=== PATIENT | female | born 1950 | race American Indian/Alaskan Native ===

== ENCOUNTER 2017-04-06 20:31 | Emergency (ER) | payer BC ==
[2017-04-06 21:36] VITALS: BP 122/83
[2017-04-06] MEDS ORDERED: Bacitracin Oint 1 GM U/D Packet TOP ONE (23:05)
--- NOTE | 2017-04-06 23:08 | EDM.PDOC ---
ED HPI GENERAL MEDICAL PROBLEM - General Chief Complaint: Laceration Stated Complaint: FINGER SLICED, [id number] Time Seen by Provider: 04/06/17 23:00 Source of Information: Reports: Patient History Limitations: Reports: No Limitations - History of Present Illness INITIAL COMMENTS - FREE TEXT/NARRATIVE: This 66 yo female patient reports to the ED with a laceration to her left distal middle finger. The patient reports she was cutting a watermelon when the knife slipped, cutting her finger. The patient reports the wound was bleeding for about 1 hour. Onset: Today Duration: Constant Location: Reports: Upper Extremity, Left Quality: Reports: Ache, Dull Severity: Mild Improves with: Reports: None Worsens with: Reports: None Associated Symptoms: Reports: No Other Symptoms Left 4-Ring finger Pain Score (Numeric/FACES): 5 - Related Data Allergies Allergy/AdvReac Type Severity Reaction Status Date / Time ibuprofen Allergy Stomach Verified 04/06/17 21:35 Upset venom-wasp [Wasp Venom] Allergy Swelling Verified 04/06/17 21:35 Home Meds: Home Meds Aspirin [Low Dose Aspirin EC] 81 mg PO DAILY 02/23/14 [History] Fenofibric Acid (Choline) [Trilipix] 45 mg PO DAILY 02/23/14 [History] Insulin Detemir [Levemir] 35 unit SQ QAM 02/23/14 [History] Insulin Detemir [Levemir] 55 unit SUBCUT QPM 02/23/14 [History] Metoprolol Tartrate 25 mg PO DAILY 02/23/14 [History] Simvastatin [Zocor] 20 mg PO BEDTIME 02/23/14 [History] sitaGLIPtin Phos/Metformin HCl [Janumet 50-1,000 mg Tablet] 1 each PO BID [History] Calcium Citrate 325 mg PO DAILY 03/17/15 [History] Cholecalciferol (Vitamin D3) [Vitamin D3] 1,000 unit PO DAILY 03/17/15 [History] glipiZIDE [Glipizide] 5 mg PO WITHDINNER 07/14/15 [History] glipiZIDE [Glipizide] 10 mg PO ACBREAKFAST 07/14/15 [History] Past Medical History Endocrine/Metabolic History: Reports: Diabetes, Type II, Obesity/BMI 30+ - Past Surgical History GI Surgical History: Reports: Appendectomy Social & Family History - Tobacco Use Smoking Status *Q: Current Every Day Smoker Years of Tobacco use: 48 Packs/Tins Daily: 0.3 Second Hand Smoke Exposure: Yes - Alcohol Use Days Per Week of Alcohol Use: 0 - Recreational Drug Use Recreational Drug Use: No ED ROS GENERAL - Review of Systems Review Of Systems: ROS reveals no pertinent complaints other than HPI. ED EXAM, SKIN/RASH Exam: See Below Exam Limited By: No Limitations General Appearance: Alert, WD/WN, No Apparent Distress Eye Exam: Bilateral Eye: EOMI, Normal Inspection, PERRL Ears: Normal External Exam, Normal Canal, Hearing Grossly Normal, Normal TMs Nose: Normal Inspection, Normal Mucosa, No Blood Throat/Mouth: Normal Inspection, Normal Lips, Normal Teeth, Normal Gums, Normal Oropharynx, Normal Voice, No Airway Compromise Head: Atraumatic Neck: Normal Inspection, Supple, Non-Tender, Full Range of Motion Respiratory/Chest: No Respiratory Distress, Lungs Clear, Normal Breath Sounds, No Accessory Muscle Use, Chest Non-Tender Cardiovascular: Normal Peripheral Pulses, Regular Rate, Rhythm, No Edema, No Gallop, No JVD, No Murmur, No Rub GI/Abdominal: Normal Bowel Sounds, Soft, Non-Tender, No Organomegaly, No Distention, No Abnormal Bruit, No Mass (Female) Exam: Deferred Rectal (Female) Exam: Deferred Back Exam: Normal Inspection, Full Range of Motion, NT Extremities: Normal Range of Motion, Non-Tender, No Pedal Edema, Normal Capillary Refill Neurological: Alert, Oriented, CN II-XII Intact, Normal Cognition, Normal Gait, Normal Reflexes, No Motor/Sensory Deficits Psychiatric: Normal Affect, Normal Mood Skin: Warm, Dry, Normal Color, No Rash Location, Skin: Upper Extremity, Right Characteristics: Linear Associated features: Tenderness. No: Warmth Lymphatic: No Adenopathy Course - Vital Signs Last Recorded V/S: Last Vital Signs Temp 37.0 C 04/06/17 21:31 Pulse 100 04/06/17 21:31 Resp 18 04/06/17 21:31 BP 122/83 04/06/17 21:31 Pulse Ox 98 04/06/17 21:31 - Orders/Labs/Meds Meds: Medications Discontinued Medications Generic Name Dose Route Start Last Admin Trade Name Freq PRN Reason Stop Dose Admin Bacitracin 1 dose 04/06/17 23:05 Bacitracin Oint 1 Gm TOP 04/06/17 23:06 ONETIME ONE - Re-Assessments/Exams Free Text/Narrative Re-Assessment/Exam: 04/06/17 23:12 Discussed the possibilities of suturing the patient's wound, but the outcome would not improve her situation. The patient agreed to dress the wound with antibiotic ointment and a bandaid. Departure - Departure Time of Disposition: 23:05 Disposition: Home, Self-Care 01 Condition: fair Clinical Impression: Laceration of left middle finger Qualifiers: Encounter type: initial encounter Damage to nail status: without damage Foreign body presence: without foreign body Qualified Code(s): S61.213A - Laceration without foreign body of left middle finger without damage to nail, initial encounter - Discharge Information Instructions: Laceration Care, Adult, [id number] Referrals: Nancy Briggs [place] [Primary Care Provider] - Forms: ED Department Discharge Care Plan Goals: The patient was advised of the examination results during the visit. The patient was encouraged to keep the area clean and dry over the next 24-48 hours. The patient will check with the [facility] on her Tetanus immunization status and get the injection if necessary tomorrow. If the patient has any additional symptoms or concerns, the patient should follow-up with her primary care facility or return to the emergency department.
== END 2017-04-06 23:16 | disposition home or self-care (01) ==
LOC: DL.ED 20:31
DX: S61.213A Laceration without foreign body of left middle finger without damage to nail, initial encounter (principal); E11.9 Type 2 diabetes mellitus without complications; E66.9 Obesity, unspecified; F17.210 Nicotine dependence, cigarettes, uncomplicated; Z88.6 Allergy status to analgesic agent; Z79.82 Long term (current) use of aspirin; Z79.899 Other long term (current) drug therapy; Z79.4 Long term (current) use of insulin; Z90.49 Acquired absence of other specified parts of digestive tract; W26.0XXA Contact with knife, initial encounter; Y93.89 Activity, other specified
CPT/HCPCS: 99283

== ENCOUNTER 2017-09-08 12:35 | Emergency (ER) | payer MEDICARE, BC, OTHER ==
[2017-09-08] MEDS ORDERED: Sodium Chloride 0.9% 10 ML Syringe FLUSH PRN ×2 (13:12→14:00)
[2017-09-08 13:50] LABS: CHLORIDE,CL 99 mmol/L (101-111); SODIUM,NA 137 mmol/L (135-145)
[2017-09-08] MEDS ORDERED: Magnesium Sulfate/D5W 2 GM in Premix Bag 1 BAG IV ONE (13:58)
[2017-09-08] MEDS ORDERED: Sodium Chloride 0.9% 1,000 ML IV ONE (14:00)
--- NOTE | 2017-09-08 14:05 | CR ---
Clinical history: 67-year-old female chest pain. Interpretation: Reasonable inspiratory effort obese female with normal cardiac silhouette (external c ardiac monitor leads). No cephalization of vascular flow, signs of alveolar edema or dependent effusion. No lung mass, hilar lymphadenopathy or focal lobar pneumonia. No atelectasis/collapse. No pneumothorax. CONCLUSION: No acute cardiopulmonary abnormality.
--- NOTE | 2017-09-08 14:27 | EDM.PDOC ---
ED HPI GENERAL MEDICAL PROBLEM - General Chief Complaint: Neuro Symptoms/Deficits Stated Complaint: BY AMBULANCE Time Seen by Provider: 09/08/17 13:20 Source of Information: Reports: Patient, RN, RN Notes Reviewed History Limitations: Reports: No Limitations - History of Present Illness INITIAL COMMENTS - FREE TEXT/NARRATIVE: Pt presents to ER per [facility] with c/o dizziness, lightheadedness. Dr. Bloom from [facility] had called report that the patient had a new onset atrial fib , symptomatic. EKG done at [facility] shows atrial fibrillation with a rate of 119. Upon arrival patient states her symptoms have resolved and she feels well. She denies dizziness, lightheadedness, palpitations in the chest. She denies any recent illness, N/V/D, Fever or chills, chest pain or sob. She states she had a cold about 1 month ago. She states her diabetes medications have been changed and she feels her blood sugars are not being covered as well. Onset: Today, Sudden Location: Reports: Chest Severity: Mild - Related Data Allergies Allergy/AdvReac Type Severity Reaction Status Date / Time ibuprofen Allergy Stomach Verified 09/08/17 12:51 Upset venom-wasp [Wasp Venom] Allergy Swelling Verified 09/08/17 12:51 Home Meds: Home Meds Aspirin [Low Dose Aspirin EC] 81 mg PO DAILY 02/23/14 [History] Simvastatin [Zocor] 10 mg PO BEDTIME 02/23/14 [History] Cholecalciferol (Vitamin D3) [Vitamin D3] 1,000 unit PO DAILY 03/17/15 [History] Losartan Potassium [Cozaar] 50 mg PO DAILY 09/08/17 [History] Saxagliptin HCl [Onglyza] 5 mg PO DAILY 09/08/17 [History] Varenicline Tartrate [Chantix] 1 tab PO BID 09/08/17 [History] metFORMIN HCl [Metformin HCl] 1,000 mg PO BID 09/08/17 [History] Past Medical History HEENT History: Reports: None Cardiovascular History: Reports: High Cholesterol Respiratory History: Reports: None Gastrointestinal History: Reports: None Genitourinary History: Reports: None 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 Musculoskeletal History: Reports: None Neurological History: Reports: None Psychiatric History: Reports: None Endocrine/Metabolic History: Reports: Diabetes, Type II, Obesity/BMI 30+ Hematologic History: Reports: None Immunologic History: Reports: None Oncologic (Cancer) History: Reports: None Dermatologic History: Reports: None - Infectious Disease History Infectious Disease History: Reports: Chicken Pox - Past Surgical History Head Surgeries/Procedures: Reports: None GI Surgical History: Reports: Appendectomy Social & Family History - Tobacco Use Smoking Status *Q: Current Every Day Smoker Years of Tobacco use: 49 Packs/Tins Daily: 0.5 Second Hand Smoke Exposure: Yes - Caffeine Use Caffeine Use: Reports: Coffee, Tea - Alcohol Use Days Per Week of Alcohol Use: 0 - Recreational Drug Use Recreational Drug Use: No ED ROS GENERAL - Review of Systems Review Of Systems: ROS reveals no pertinent complaints other than HPI. ED EXAM, GENERAL - Physical Exam Exam: See Below Exam Limited By: No Limitations General Appearance: Alert, WD/WN, No Apparent Distress Eye Exam: Bilateral Eye: Normal Inspection Ears: Normal External Exam Nose: Normal Inspection Throat/Mouth: Normal Inspection, Normal Lips, Normal Teeth, Normal Gums, Normal Oropharynx, Normal Voice, No Airway Compromise Head: Atraumatic, Normocephalic Neck: Normal Inspection, Supple, Non-Tender, Full Range of Motion Respiratory/Chest: No Respiratory Distress, Lungs Clear, Normal Breath Sounds, No Accessory Muscle Use, Chest Non-Tender Cardiovascular: Normal Peripheral Pulses, Regular Rate, Rhythm, No Edema, No Gallop, No JVD, No Murmur, No Rub Peripheral Pulses: 2+: Radial (L), Radial (R) GI/Abdominal: Normal Bowel Sounds, Soft, Non-Tender, No Organomegaly, No Distention, No Abnormal Bruit, No Mass (Female) Exam: Deferred Rectal (Female) Exam: Deferred Back Exam: Normal Inspection, Full Range of Motion Extremities: Normal Inspection, Normal Range of Motion, Non-Tender, No Pedal Edema, Normal Capillary Refill Neurological: Alert, Oriented, Normal Cognition, Normal Gait, No Motor/Sensory Deficits Psychiatric: Normal Affect, Normal Mood Skin Exam: Warm, Dry, Intact, Normal Color, No Rash Lymphatic: No Adenopathy EKG INTERPRETATION EKG Date: 09/08/17 Time: 13:40 Rhythm: NSR Rate (Beats/Min): 76 Gordon: LAD-Left Gordon Deviation P-Wave: Present QRS: Normal ST-T: Normal QT: Normal Comparison: No Change Course - Vital Signs Last Recorded V/S: Last Vital Signs Temp 98.3 F 09/08/17 12:44 Pulse 84 09/08/17 12:44 Resp 16 09/08/17 12:44 BP 139/72 09/08/17 12:44 Pulse Ox 100 09/08/17 12:44 - Orders/Labs/Meds Orders: Active Orders 24 hr Category Date Time Status EKG Documentation Completion [RC] STAT Care 09/08/17 13:12 Active Peripheral IV Care [RC] . DIRECTED Care 09/08/17 13:12 Active Peripheral IV Care [RC] . DIRECTED Care 09/08/17 14:00 Active Magnesium Sulfate/D5W [Magnesium 1 GM in D5W 100 ML] 1 Med 09/08/17 14:15 Active gm Premix Bag 1 bag IV Q1H Sodium Chloride 0.9% [Saline Flush] Med 09/08/17 13:12 Active 10 ml FLUSH ASDIRECTED PRN Sodium Chloride 0.9% [Saline Flush] Med 09/08/17 14:00 Active 10 ml FLUSH ASDIRECTED PRN Peripheral IV Insertion Adult [OM.PC] Stat Oth 09/08/17 13:12 Ordered Peripheral IV Insertion Adult [OM.PC] Stat Oth 09/08/17 14:00 Ordered Medication Orders Magnesium Sulfate/Dextrose 1 (gm/ Premix) 100 mls @ 100 mls/hr IV Q1H ROBERT Stop: 09/08/17 16:14 Last Admin: 09/08/17 14:15 Dose: 100 mls/hr Sodium Chloride (Saline Flush) 10 ml FLUSH ASDIRECTED PRN PRN Reason: Keep Vein Open Last Admin: 09/08/17 14:11 Dose: 10 ml Sodium Chloride (Saline Flush) 10 ml FLUSH ASDIRECTED PRN PRN Reason: Keep Vein Open Last Admin: 09/08/17 14:11 Dose: 10 ml Labs: Laboratory Tests 09/08/17 09/08/17 09/08/17 Range/Units 13:10 13:19 13:19 WBC 13.5 H (5.0-10.0) 10^3/uL RBC 4.52 (4.2-5.4) 10^6/uL Hgb 13.4 (12.0-16.0) g/dL Hct 40.4 (37.0-47.0) % MCV 89.4 (80-100) fL MCH 29.6 (27.0-34.0) pg MCHC 33.2 (33.0-35.0) g/dL Plt Count 286 (150-450) 10^3/uL Neut % (Auto) 64.3 (42.2-75.2) % Lymph % (Auto) 28.5 (20.5-50.1) % [place] % (Auto) 5.1 (2-8) % Eos % (Auto) 1.6 (1.0-3.0) % Baso % (Auto) 0.5 (0.0-1.0) % Sodium 137 (135-145) mmol/L Potassium 4.5 (3.6-5.0) mmol/L Chloride 99 L (101-111) mmol/L Carbon Dioxide 27.0 (21.0-31.0) mmol/L Anion Gap 15.5 BUN 13 (7-18) mg/dL Creatinine 0.7 (0.6-1.3) mg/dL Est Cr Clr Drug Dosing 63.37 mL/min Estimated GFR (MDRD) > 60 BUN/Creatinine Ratio 18.57 Glucose 238 H (74-105) mg/dL Calcium 10.1 (8.4-10.2) mg/dl Magnesium 1.7 L (1.8-2.5) mg/dL Total Bilirubin 0.5 (0.2-1.0) mg/dL AST 25 (10-42) IU/L ALT 18 (10-60) IU/L Alkaline Phosphatase 68 (42-121) IU/L Troponin I 0.02 (0.00-0.02) ng/ml Total Protein 8.3 H (6.7-8.2) g/dl Albumin 4.4 (3.2-5.5) g/dl Globulin 3.9 Albumin/Globulin Ratio 1.13 TSH, Ultra Sensitive (0.45-5.33) uIu/mL Urine Color Yellow (YELLOW) Urine Appearance Clear (CLEAR) Urine pH 5.5 (5.0-9.0) Ur Specific [place] 1.015 (1.005-1.030) Urine Protein Negative (NEGATIVE) Urine Glucose (UA) 500 H (NEGATIVE) Urine Ketones Negative (NEGATIVE) Urine Occult Blood Negative (NEGATIVE) Urine Nitrite Negative (NEGATIVE) Urine Bilirubin Negative (NEGATIVE) Urine Urobilinogen 0.2 (0.2-1.0) mg/dL Ur Leukocyte Esterase Negative (NEGATIVE) Urine RBC 0-5 /HPF Urine WBC 0-5 (0-5/HPF) /HPF Ur Epithelial Cells Rare /HPF Urine Bacteria Rare (0-FEW/HPF) /HPF 09/08/17 Range/Units 13:19 WBC (5.0-10.0) 10^3/uL RBC (4.2-5.4) 10^6/uL Hgb (12.0-16.0) g/dL Hct (37.0-47.0) % MCV (80-100) fL MCH (27.0-34.0) pg MCHC (33.0-35.0) g/dL Plt Count (150-450) 10^3/uL Neut % (Auto) (42.2-75.2) % Lymph % (Auto) (20.5-50.1) % [place] % (Auto) (2-8) % Eos % (Auto) (1.0-3.0) % Baso % (Auto) (0.0-1.0) % Sodium (135-145) mmol/L Potassium (3.6-5.0) mmol/L Chloride (101-111) mmol/L Carbon Dioxide (21.0-31.0) mmol/L Anion Gap BUN (7-18) mg/dL Creatinine (0.6-1.3) mg/dL Est Cr Clr Drug Dosing mL/min Estimated GFR (MDRD) BUN/Creatinine Ratio Glucose (74-105) mg/dL Calcium (8.4-10.2) mg/dl Magnesium (1.8-2.5) mg/dL Total Bilirubin (0.2-1.0) mg/dL AST (10-42) IU/L ALT (10-60) IU/L Alkaline Phosphatase (42-121) IU/L Troponin I (0.00-0.02) ng/ml Total Protein (6.7-8.2) g/dl Albumin (3.2-5.5) g/dl Globulin Albumin/Globulin Ratio TSH, Ultra Sensitive 0.87 (0.45-5.33) uIu/mL Urine Color (YELLOW) Urine Appearance (CLEAR) Urine pH (5.0-9.0) Ur Specific [place] (1.005-1.030) Urine Protein (NEGATIVE) Urine Glucose (UA) (NEGATIVE) Urine Ketones (NEGATIVE) Urine Occult Blood (NEGATIVE) Urine Nitrite (NEGATIVE) Urine Bilirubin (NEGATIVE) Urine Urobilinogen (0.2-1.0) mg/dL Ur Leukocyte Esterase (NEGATIVE) Urine RBC /HPF Urine WBC (0-5/HPF) /HPF Ur Epithelial Cells /HPF Urine Bacteria (0-FEW/HPF) /HPF Meds: Medications Generic Name Dose Route Start Last Admin Trade Name Freq PRN Reason Stop Dose Admin Magnesium Sulfate/Dextrose 1 100 mls @ 100 mls/hr 09/08/17 14:15 09/08/17 14: 15 gm/ Premix IV 09/08/17 16:14 100 mls/hr Q1H ROBERT Administration Sodium Chloride 10 ml 09/08/17 13:12 09/08/17 14:11 Saline Flush FLUSH 10 ml ASDIRECTED PRN Administration Keep Vein Open Sodium Chloride 10 ml 09/08/17 14:00 09/08/17 14:11 Saline Flush FLUSH 10 ml ASDIRECTED PRN Administration Keep Vein Open Discontinued Medications Generic Name Dose Route Start Last Admin Trade Name Freq PRN Reason Stop Dose Admin Sodium Chloride 1,000 mls @ 999 mls/hr 09/08/17 14:00 09/08/17 14:11 Normal Saline IV 09/08/17 15:00 999 mls/hr .BOLUS ONE Administration - Radiology Interpretation Free Text/Narrative:: chest x-ray: No acute findings See rad report - Re-Assessments/Exams Free Text/Narrative Re-Assessment/Exam: 09/08/17 14:30 Patient sent to the medical floor to receive 2gm of Magnesium IV. Departure - Departure Time of Disposition: 15:31 Disposition: Home, Self-Care 01 Condition: Good Clinical Impression: New onset a-fib Instructions: Atrial Fibrillation, [id number] Forms: ED Department Discharge Additional Instructions: Follow up with your primary care facility for blood sugar control and Cardiology referral. Return to ER with any further problems. - My Orders Last 24 Hours: My Active Orders 09/08/17 13:12 EKG Documentation Completion [RC] STAT Peripheral IV Care [RC] . DIRECTED Sodium Chloride 0.9% [Saline Flush] 10 ml FLUSH ASDIRECTED PRN Peripheral IV Insertion Adult [OM.PC] Stat 09/08/17 14:00 Peripheral IV Care [RC] . DIRECTED Sodium Chloride 0.9% [Saline Flush] 10 ml FLUSH ASDIRECTED PRN Peripheral IV Insertion Adult [OM.PC] Stat 09/08/17 14:15 Magnesium Sulfate/D5W [Magnesium 1 GM in D5W 100 ML] 1 gm Premix Bag 1 bag IV Q1H - Assessment/Plan Last 24 Hours: My Active Orders 09/08/17 13:12 EKG Documentation Completion [RC] STAT Peripheral IV Care [RC] . DIRECTED Sodium Chloride 0.9% [Saline Flush] 10 ml FLUSH ASDIRECTED PRN Peripheral IV Insertion Adult [OM.PC] Stat 09/08/17 14:00 Peripheral IV Care [RC] . DIRECTED Sodium Chloride 0.9% [Saline Flush] 10 ml FLUSH ASDIRECTED PRN Peripheral IV Insertion Adult [OM.PC] Stat 09/08/17 14:15 Magnesium Sulfate/D5W [Magnesium 1 GM in D5W 100 ML] 1 gm Premix Bag 1 bag IV Q1H
[2017-09-08 15:41] VITALS: BP 114/51
--- NOTE | 2017-09-09 12:17 | EKG ---
09/08/2017 - NATHAN INFANTE - The 12-lead EKG shows normal sinus rhythm with ventricular rate of 76. Normal axis and intervals. Borderline left axis deviation. No acute ST-segment or T- wave changes. [facility] /[id number]
== END 2017-09-08 16:53 | disposition home or self-care (01) ==
LOC: DL.ED 12:35
DX: I48.91 Unspecified atrial fibrillation (principal); E78.00 Pure hypercholesterolemia, unspecified; E11.9 Type 2 diabetes mellitus without complications; E66.9 Obesity, unspecified; F17.210 Nicotine dependence, cigarettes, uncomplicated; Z79.82 Long term (current) use of aspirin; Z79.899 Other long term (current) drug therapy; Z88.6 Allergy status to analgesic agent; Z91.038 Other insect allergy status
CPT/HCPCS: 36415; 71010; 80053; 81001; 83735; 84443; 84484; 85025; 93005; 93010; 96365; 96366; 99285; J3475; J7030; J7050

== ENCOUNTER 2018-03-10 18:22 | Emergency (ER) | payer MEDICARE, BC, OTHER ==
[2018-03-10 19:24] VITALS: BP 130/46
--- NOTE | 2018-03-10 20:28 | EDM.PDOC ---
ED HPI GENERAL MEDICAL PROBLEM - General Chief Complaint: General Stated Complaint: [id number] THINKS BLOOD SUGAR IS HIGH Time Seen by Provider: 03/10/18 20:16 Source of Information: Reports: Patient History Limitations: Reports: No Limitations - History of Present Illness INITIAL COMMENTS - FREE TEXT/NARRATIVE: States unsure if neededs to be seen feeling better now. States came in today as felt warm at home. Just wants to go home now and take her evening medications. Only c/o at present is morning cough which is chronic, has nebulizer but has not been using but notes she thinks she will try and see if it helps. Quit smoking 6 months ago. - Related Data Allergies Allergy/AdvReac Type Severity Reaction Status Date / Time ibuprofen Allergy Stomach Verified 09/08/17 12:51 Upset venom-wasp [Wasp Venom] Allergy Swelling Verified 09/08/17 12:51 Home Meds: Home Meds Aspirin [Low Dose Aspirin EC] 81 mg PO DAILY 02/23/14 [History] Simvastatin [Zocor] 10 mg PO BEDTIME 02/23/14 [History] Cholecalciferol (Vitamin D3) [Vitamin D3] 1,000 unit PO DAILY 03/17/15 [History] Losartan Potassium [Cozaar] 50 mg PO DAILY 09/08/17 [History] Saxagliptin HCl [Onglyza] 5 mg PO DAILY 09/08/17 [History] Varenicline Tartrate [Chantix] 1 tab PO BID 09/08/17 [History] metFORMIN HCl [Metformin HCl] 1,000 mg PO BID 09/08/17 [History] Past Medical History HEENT History: Reports: None Cardiovascular History: Reports: High Cholesterol Respiratory History: Reports: None Gastrointestinal History: Reports: None Genitourinary History: Reports: None 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 Musculoskeletal History: Reports: None Neurological History: Reports: None Psychiatric History: Reports: None Endocrine/Metabolic History: Reports: Diabetes, Type II, Obesity/BMI 30+ Hematologic History: Reports: None Immunologic History: Reports: None Oncologic (Cancer) History: Reports: None Dermatologic History: Reports: None - Infectious Disease History Infectious Disease History: Reports: Chicken Pox - Past Surgical History Head Surgeries/Procedures: Reports: None GI Surgical History: Reports: Appendectomy Social & Family History - Caffeine Use Caffeine Use: Reports: Coffee, Tea ED ROS GENERAL - Review of Systems Review Of Systems: ROS reveals no pertinent complaints other than HPI. ED EXAM, GENERAL - Physical Exam Exam: See Below Exam Limited By: No Limitations General Appearance: Alert, No Apparent Distress Ears: Normal External Exam, Normal TMs Nose: Normal Inspection Throat/Mouth: Normal Inspection Head: Atraumatic, Normocephalic Neck: Normal Inspection Respiratory/Chest: No Respiratory Distress, Lungs Clear, Normal Breath Sounds Cardiovascular: Normal Peripheral Pulses, Regular Rate, Rhythm Back Exam: Full Range of Motion Extremities: Normal Range of Motion Neurological: Alert, Oriented Psychiatric: Flat Affect Skin Exam: Warm, Dry, Intact, Normal Color Course - Vital Signs Last Recorded V/S: Last Vital Signs Temp 100.0 F 03/10/18 19:22 Pulse 78 03/10/18 19:22 Resp 17 03/10/18 19:22 BP 130/46 L 03/10/18 19:22 Pulse Ox 97 03/10/18 19:22 - Orders/Labs/Meds Labs: Laboratory Tests 03/10/18 Range/Units 19:20 POC Glucose 307 H (70-105) mg/dl Departure - Departure Time of Disposition: 20:26 Disposition: Home, Self-Care 01 Condition: Good Clinical Impression: Anxiety about health Hyperglycemia due to type 2 diabetes mellitus Qualifiers: Diabetes mellitus fpc insulin use: without fpc use Qualified Code(s ): E11.65 - Type 2 diabetes mellitus with hyperglycemia - Discharge Information Instructions: Cough, Adult, [id number] Referrals: Nancy Briggs [facility] [Primary Care Provider] - Forms: ED Department Discharge Additional Instructions: follow up with primary care as needed
== END 2018-03-10 20:32 | disposition home or self-care (01) ==
LOC: DL.ED 18:22
DX: E11.65 Type 2 diabetes mellitus with hyperglycemia (principal); F41.9 Anxiety disorder, unspecified; Z88.8 Allergy status to other drugs, medicaments and biological substances; Z91.048 Other nonmedicinal substance allergy status; Z79.82 Long term (current) use of aspirin; Z79.899 Other long term (current) drug therapy
CPT/HCPCS: 82962; 99282; 99283